=== PATIENT | male | born 1950 | race Caucasian/White ===

== ENCOUNTER 2016-12-19 14:39 | Emergency (ER) | payer BC ==
[2016-12-19 14:45] VITALS: O2SAT 95
--- NOTE | 2016-12-19 15:18 | EDPHY ---
H & P Time Seen by Provider: 12/19/16 14:57 HPI/ROS: HPI Blood in urine. 66-year-old male by private vehicle with his . This patient is visiting the [place] area with his on vacation from [place]. He reports that 5 weeks ago he had an episode of hematuria followed by passing of with look like a small clot about the size of a pea. He reports that Thursday of this last weekend he had some more hematuria which she describes as blood-tinged urine and describe having and irritation in his urethra about an inch from the tip. He denies any purulent discharge. He reports that he has had on and off hematuria since that time. He had a urinalysis done in [place] on Thursday. This showed some blood but was negative for infection. He reports today he again had hematuria and describes a burning sensation near the tip of his penis. He states he is monogamous. He denies any flank pain or abdominal pain. No fever. No other complaints. ROS: Constitutional: No fever, no chills. No weakness. Eyes: No discharge. No changes in vision. ENT: No sore throat. No nasal congestion or rhinorrhea. Respiratory: No cough. No shortness of breath. Cardiac: No chest pain, no palpitations. Gastrointestinal: No abdominal pain, no vomiting, no diarrhea. Genitourinary: As above. Musculoskeletal: No back pain. No neck pain. No myalgias or arthralgias. Skin: No rashes. Neurological: No headache. No focal weakness or altered sensation. Past medical history: Hypertension. Social history: Nonsmoker. Here from [place] with his . Denies alcohol. As above. Physical Exam: General Appearance: Alert, no distress. This patient is responding to questions appropriately and in full sentences. This patient appears well- hydrated and well-nourished. Eyes: Pupils equal and round no pallor or injection. No lid edema, erythema or injection. Respiratory: There are no retractions, lungs are clear to auscultation with good air movement bilaterally. Cardiovascular: Regular rate and rhythm. No murmur. Gastrointestinal: Abdomen is soft and nontender, no masses, bowel sounds normal. No focal tenderness at McBurney's point. No Sage sign. Genitourinary: Uncircumcised penis. No discharge. No lesions. No erythema or swelling. Neurological: Motor sensory function is grossly intact. Cranial nerves are normal. Gait is normal. Skin: Warm and dry, no rashes. Musculoskeletal: No CVA tenderness on palpation. Extremities are symmetrical. All joints range without pain or impingement. Psychiatric: No agitation. No depression. Database: EKG: Imaging: Procedures: Emergency department course: Vital signs reviewed and are normal. Discussed management plan differential diagnosis with the patient. Urinalysis will be obtained as well basic blood work to evaluate BUN and creatinine. 4:25 p.m., patient re-evaluated. Resting comfortably at this time. No pain. No complaints. Results of his laboratory work were discussed. Need for cystoscopy in urology follow-up reviewed with him and his . He feels comfortable going home. He will see a urologist when he returns home to [place] on Thursday. Return to emergency department precautions were thoroughly reviewed with the 2 of them. All of their questions were answered. The patient was discharged in good condition. Differential Diagnosis: The differential diagnosis on this patient includes but is not limited to nephritis, urethritis, cystitis, malignancy. Kidney stone, sexually transmitted infection unlikely. This represents a partial list of diagnoses considered. These considerations are based on history, physical exam, past history, reassessment and diagnostic testing. Smoking Status: Never smoked Constitutional: Initial Vital Signs Temperature (C) 36.9 C 12/19/16 14:43 Heart Rate 70 12/19/16 14:43 Respiratory Rate 17 12/19/16 14:43 Blood Pressure 191/112 H 12/19/16 14:43 O2 Sat (%) 95 12/19/16 14:43 O2 Delivery Mode Room Air Allergies/Adverse Reactions: No Known Allergies Allergy (Unverified 12/19/16 14:43) Home Medications: Medication Instructions Recorded Hydrochlorothiazide 12/19/16 Pindolol 12/19/16 Medical Decision Making - Data Points Laboratory Results: Laboratory Results 12/19/16 15:12 12/19/16 15:12 12/19/16 12/19/16 12/19/16 15:18 15:12 15:12 WBC 8.94 10^3/uL 10^3/uL (3.80-9.50) RBC 5.48 10^6/uL 10^6/uL (4.40-6.38) Hgb 16.4 g/dL g/dL (13.7-17.5) Hct 45.9 % % (40.0-51.0) MCV 83.8 fL fL (81.5-99.8) MCH 29.9 pg pg (27.9-34.1) MCHC 35.7 g/dL g/dL (32.4-36.7) RDW 13.0 % % (11.5-15.2) Plt Count 244 10^3/uL 10^3/uL (150-400) MPV 9.2 fL fL (8.7-11.7) Neut % (Auto) 60.4 % % (39.3-74.2) Lymph % (Auto) 27.1 % % (15.0-45.0) [place] % (Auto) 9.2 % % (4.5-13.0) Eos % (Auto) 2.3 % % (0.6-7.6) Baso % (Auto) 0.6 % % (0.3-1.7) Nucleat RBC Rel Count 0.0 % % (0.0-0.2) Absolute Neuts (auto) 5.40 10^3/uL 10^3/uL (1.70-6.50) Absolute Lymphs (auto) 2.42 10^3/uL 10^3/uL (1.00-3.00) Absolute Monos (auto) 0.82 10^3/uL H 10^3/uL (0.30-0.80) Absolute Eos (auto) 0.21 10^3/uL 10^3/uL (0.03-0.40) Absolute Basos (auto) 0.05 10^3/uL 10^3/uL (0.02-0.10) Absolute Nucleated RBC 0.00 10^3/uL 10^3/uL (0-0.01) Immature Gran % 0.4 % % (0.0-1.1) Immature Gran # 0.04 10^3/uL 10^3/uL (0.00-0.10) Sodium 139 mEq/L mEq/L (134-144) Potassium 3.8 mEq/L mEq/L (3.5-5.2) Chloride 101 mEq/L mEq/L (97-110) Carbon Dioxide 28 mEq/l mEq/l (22-31) Anion Gap 10 mEq/L mEq/L (8-16) BUN 21 mg/dL mg/dL (7-23) Creatinine 1.2 mg/dL mg/dL (0.7-1.3) Estimated GFR > 60 Glucose 94 mg/dL mg/dL (70-100) Calcium 9.5 mg/dL mg/dL (8.5-10.4) Urine Color YELLOW Urine Appearance HAZY Urine pH 5.0 (5.0-7.5) Ur Specific [place] 1.010 (1.002-1.030) Urine Protein NEGATIVE (NEGATIVE) Urine Ketones NEGATIVE (NEGATIVE) Urine Blood 2+ H (NEGATIVE) Urine Nitrate NEGATIVE (NEGATIVE) Urine Bilirubin NEGATIVE (NEGATIVE) Urine Urobilinogen NEGATIVE EU EU (0.2-1.0) Ur Leukocyte Esterase NEGATIVE (NEGATIVE) Urine RBC 50-182 /hpf H /hpf (0-3) Urine WBC 1-3 /hpf /hpf (0-3) Ur Epithelial Cells TRACE /lpf /lpf (NONE-1+) Urine Mucus TRACE /lpf /lpf (NONE-1+) Urine Glucose NEGATIVE (NEGATIVE) Departure - Departure Disposition: Home, Routine, Self-Care Clinical Impression: Hematuria Condition: Good Instructions: Hematuria (ED) Additional Instructions: Read and follow provided instructions. Follow-up with your urologist when you return home to [place] on Thursday for a cystoscopy and further evaluation as discussed. I have also provided you with the name of urologist locally if her departure is delayed. Return to the emergency department for worsening bleeding, pain, fever or other serious concerns. Referrals: Emilie Juarez MD [Medical Doctor] - As per Instructions
[2016-12-19 15:22] LABS: PLATELET COUNT 244 10^3/uL (150-400)
[2016-12-19 16:25] VITALS: BP 130/98; PULSE 62; RESP 15; TEMP 97.5
== END 2016-12-19 16:35 | disposition home or self-care (01) ==
DX: R31.9 Hematuria, unspecified (principal); I10 Essential (primary) hypertension